=== PATIENT | male | born 1955 | race Caucasian/White ===

== ENCOUNTER 2017-02-22 05:33 | Day surgery (SDC) | payer OTHER ==
[2017-02-22] VITALS (9 sets, daily range): BP systolic 106–138; BP diastolic 55–67; PULSE 54–61; RESP 14–17; O2SAT 94–100
[~2017-02-22] VITALS: Ht 162.6 cm; Wt 91.9 kg
[~2017-02-22 05:33] MED LIST: AMLO5TAB2 PO; ASPI-973 PO; ATEN100T PO; CYCL10TA9 PO; FLUT9.9S NS; HYDR25TA4 PO; LANS30CA14 PO; LEVO25TA41 PO; Lactated Ringer's 1,000 ML IV ONE; METF500T4 PO; SIMV20TA4 PO; TAMS0.4C98 PO
[2017-02-22] MEDS ORDERED: Propofol 10,000 mCg/mL 20 mL Inj ONE (05:34)
[2017-02-22] MEDS ORDERED: Glycopyrrolate 0.2 MG/ML 1mL Inj ONE (05:34)
[2017-02-22] MEDS ORDERED: Dexamethasone 4 mg/mL Inj ONE (05:34)
[2017-02-22] MEDS ORDERED: Rocuronium 10 mg/mL 5 mL Inj ONE (05:34)
[2017-02-22] MEDS ORDERED: Neostigmine 1 mg/mL 10 mL Inj ONE (05:34)
[2017-02-22] MEDS ORDERED: Ondansetron 2 mg/mL 2 mL Inj ONE (05:34)
[2017-02-22] MEDS ORDERED: fentaNYL-PF 50 mCg/mL 2 mL Inj ONE (05:34)
[2017-02-22] MEDS ORDERED: HYDR-4003 PO (05:55)
[2017-02-22] MEDS ORDERED: MULT-666 PO (05:55)
[2017-02-22] MEDS ORDERED: Levofloxacin 500 mg/100 mL D5W IV ONE (06:00)
[2017-02-22] MEDS ORDERED: Lactated Ringer's 1,000 ML IV SCH (07:53)
[2017-02-22] MEDS ORDERED: Lactated Ringer's 500 ML IV PRN (07:53)
--- NOTE | 2017-02-22 07:53 | PCM.HPANE ---
Patient Data Surgeon Admitting Provider: Attending Provider:Apple Saleem MD Primary Care Physician:Hany Curtis DO Other Provider:Merari Garciaingham Anesthesia Reason for Visit Enlarge Prostate Ht/WT & BMI Height (Feet): 5 Height (Inches): 4 Weight (Kilograms): 91.9 Body Mass Index 34.00 Allergies Coded Allergies: atorvastatin (Verified Adverse Reaction, Severe, muscle aches, 02/18/17) Past Anesthesia History Anesthesia History: Denies:: Abnormal Airway, Anesthesia Reactions, Difficult Intubation, Fam Anesthesia Reaction, Fam Malignant Hypertherm, Malignant Hyperthermia Diabetes History Hx Diabetes?: Yes Type of Diabetes: Type II Current Bedside Blood Glucose: 106 MRSA MRSA: No Medications Blood Thinner: Aspirin Hypertension Medication: Yes (AMLODIPINE,HCTZ) Home Meds Incl Beta Celio: Yes Date Beta Celio Taken: Feb 22, 2017 Time Beta Celio Taken: 399 Previous Beta Celio Dose >24: Previous Dose <24 Hours Reported Medications Multivitamin (Once Daily)1 Each Tablet1 Each PO DAILY 02/22/17 Hydrocodone-Acetaminophen 5-325 mg 1 Each Tablet1 Tab PO PRN #60 02/22/17 Simvastatin 20 Mg Nkcczh66 Mg PO HS Ref 0 02/18/[address] (Prevacid)30 Mg Zkelslv11 Mg PO DAILY Ref 0 02/18/17 Metformin 500 Mg Nspgxz826 Mg PO DAILY Ref 0 02/18/17 Levothyroxine (Levoxyl)25 Mcg Hycufk34 Mcg PO DAILY Ref 0 02/18/17 Hydrochlorothiazide 25 Mg Fyfvvh01 Mg PO DAILY 30 Days Ref 0 02/18/17 Fluticasone Propionate (Flonase Allergy Relief)50 Mcg/Actuation [place].susp9.9 Ml NS DAILY 02/18/17 Cyclobenzaprine 10 Mg Iafycs61 Mg PO HS PRN Spasm Ref 0 02/18/17 Atenolol 100 Mg Bxwwmy870 Mg PO DAILY Ref 0 02/18/17 Aspirin 81 Mg Spccuz02 Mg PO DAILY Ref 0 02/18/17 Amlodipine 5 Mg Tablet5 Mg PO DAILY Ref 0 02/18/17 Tamsulosin (Flomax)0.4 Mg Capsule0.4 Mg PO DAILY Ref 0 02/18/17 Discontinued Reported Medications Lansoprazole-Expunged Drug, Do Not Renew! 30 Mg Capsule.dr30 Mg PO AM Ref 0 01/25/09 Simvastatin-Expunged Drug, Choose New Med! 40 Mg Lthrgs91 Mg PO AM Ref 0 01/25/09 Aspirin-Expunged Drug, Do Not Renew! (Aspirin EC-Expunged Drug, Do Not Renew!) 81 Mg Wkdodz20 Mg PO AM Ref 0 01/25/09 Atenolol-Expunged Drug, Do Not Renew! 100 Mg Tipzbp539 Mg PO AM Ref 0 01/25/09 History History of ENT Problems?: Yes HEENT History: Denies:: Abnormal Airway Cataracts Difficult Intubation Dysphagia Glaucoma Hearing Problem Sinus Problem TMJ Denture Type: Full- Upper Full- Lower Teeth Condition: Missing Teeth Other HEENT Pertinent History: S/P MULT. TOOTH EXTRACTIONS Hx of Heart Problems?: Yes Cardiovascular History: Positive for:: Chest Pain (11/2001 MPS WNL) Edema (PERIPHERAL) Hypertension (HYPERLIPIDEMIA) Denies:: Heart Murmur Other Cardiac History: HX OF POLYCYTHEMIA, HEMATOCHROMATOSIS-LAST TX W/ PHLEBOTOMY 2010 Hx of Respiratory Problem?: Yes Respiratory History: Positive for:: COPD (MILD ATYPICAL OBSTRUCTION ON PFT) Chest Surgery (S/P RU LOBECTOMY FOR CA PULM NOTE 07/2016, PFT 06/2015) Denies:: Use of C-PAP Machine Other Resp Pertinent History: longtime smoker (+40pkyrs) quit in 2014 Hx Neurologic Problems?: Yes Neurological History: Positive for:: 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 (SEBORRHEIC KERATOSIS) Hx Musculoskeletal Problems?: Yes Musculoskeletal History: Positive for:: Musculoskeletal Trauma (S/P ORIF ANKLE ,RT ROTATOR CUFF RPR) Denies:: Back Injury (C/OF CHRONIC LOWER BACK PAIN & CERVICA DDD) Hx of Psycho/Social Problems?: Yes Psycho Social History: Positive for:: Anxiety Hx Depression Hx Surgeries?: Yes (shoulder, ankle,RT UPPER LOBECTOMY,KIDNEY STONE,LUMBAR SPINE,TEETH) Hx Any Other Health Problems?: Yes Other History: Positive for:: Cancer (RT UPPER LOBE LUNG) Hospitalization Thyroid Disease Denies:: Endocrine Disease History Blood Transfusions: Denies:: Blood Transfusions Hx Diabetes: YesBedside Blood Glucose: 106 Hx Alcohol Use: Yes (OCCAS)Have You Smoked inLast 12 mo: NoApprox How Many Cigarettes/day: 2 PPD X 44YRS Stop/Bang S-Snoring: Do You Snore Loudly: No T-Tired: feel tired, fatigued: Yes O-Obsered: Observed not breath: No P-Blood Pressure: treated: Yes B- Body Mass Index > 35 kg/m2: No A- Age over 50: Yes N- Neck Large Circumference: No G- Gender Male: Yes SANTA Total Score: 4 SANTA Risk Assessment: High Risk, =/>3 Yes Risk Assessment Category Category 1A: Patient has history of documented sleep apnea, and HAS NOT received any narcotic, sedative or anesthesia administration during this stay. Category 1B: Patient has history of documented sleep apnea, and HAS received any narcotic , sedative or anesthesia administration during this stay Category 2: Patient has SUSPECTED Obstructive Sleep Apnea, and HAS received any narcotic , sedative or anesthesia administration during this stay. Category 3: Patient has SUSPECTED Obstructive Sleep Apnea and HAS NOT received narcotic, sedative or anesthesia administration during this stay. Category 4: Outpatient in Procedural Areas with known sleep apnea or who screen positive for High Risk via the STOP/BANG questionnaire. Exam Exam Vital Signs Vital Signs Date Time Temp Pulse Resp B/P Pulse Ox O2 Delivery O2 Flow Rate FiO2 02/22/17 06:04 56 17 127/60 95 Room Air General Appearance: Alert, Oriented X3, Cooperative, No Acute Distress HEENT/AIRWAY: MP 2, Neck Movement (limited with extension) Lungs: Clear to Auscultation, Normal Air Movement Heart: Exam Unremarkable, Regular Rate/Rhythm, No Murmurs/Rubs/Gallops Meds/Labs/Diagnostics Admission Meds Current Medications Lactated Ringer's (Lr) 1,000 ml @ 120 mls/hr Q8H20M ONCE IV Last administered on 02/22/17t 05:39; Start 02/22/17 at 05:00; Stop 02/22/17 at 13:19 Bedside Blood Glucose: 106 Plan Impression Patient chart reviewed, patient interviewed and anesthestic plan with risks, benefits, and alternatives discussed, and informed consent obtained. NPO per Anesth. Guidelines: Yes ASA Physical Status: ASA3 Severe Disease Anesthetic Plan: GA Bene/Risks/Altern/Consents: Yes HP Complete Prior to Induction: Yes Srinivasa Addison MD Feb 22, 2017 07:07
[2017-02-22] MEDS ORDERED: MetoCLOpramide 5 mg/mL 2 mL Inj IVPUSH PRN (07:55)
[2017-02-22] MEDS ORDERED: HYDROmorphone 1 mg/mL Inj IVPUSH PRN (07:55)
[2017-02-22] MEDS ORDERED: Ondansetron 2 mg/mL 2 mL Inj IVPUSH PRN (07:55)
[2017-02-22] MEDS ORDERED: fentaNYL-PF 50 mCg/mL 2 mL Inj IVPUSH PRN (07:55)
[2017-02-22] MEDS ORDERED: EPHEDrine Sulfate 50 mg/mL Inj IVPUSH PRN (07:55)
[2017-02-22] MEDS ORDERED: Labetalol 5 mg/mL 4 mL Inj IV PRN (07:55)
[2017-02-22] MEDS ORDERED: Atropine 0.4 mg/mL Inj IVPUSH PRN (07:55)
[2017-02-22] MEDS ORDERED: Phenylephrine 10,000 mCg/mL Inj IVPUSH PRN (07:55)
[2017-02-22] MEDS ORDERED: HYDROcodone-APAP 5-325 mg Tablet PO PRN (08:20)
--- NOTE | 2017-02-22 08:39 | PCM.ANEP1 ---
Post Anesthesia PACU Phase 1 Assessment Vital Signs Vital Signs Date Time Temp Pulse Resp B/P Pulse Ox O2 Delivery O2 Flow Rate FiO2 02/22/17 08:35 56 16 106/55 94 Room Air 02/22/17 08:30 54 15 119/63 100 Simple Mask 8 02/22/17 08:25 55 14 127/58 100 Simple Mask 8 02/22/17 08:20 36.2 56 17 138/65 100 Simple Mask 8 02/22/17 06:04 56 17 127/60 95 Room Air Anesthetic Administered: GA Level of Alertness: Awake, talking BECKER's with Equal Strength: Yes Pain: No Nausea or Vomiting: No CV Function & Hydration Stable: Yes Airway Device: Endotrachial Tube Oxygen Delivery: Simple Mask Lungs: Clear to Auscultation, Normal Air Movement PACU Phase 2 Assessment Complications: No Follow up Care: N/A Patient Instructions Provided: N/A Srinivasa Addison MD Feb 22, 2017 08:39
--- NOTE | 2017-02-22 08:58 | OP ---
[address] [address] OPERATIVE REPORT PATIENT: HARLEY MAURICIO : 1955 MR#: [id number] ADMIT: 02/22/2017 JOB ID: [id number] DATE OF SURGERY: 02/22/2017 PREOPERATIVE DIAGNOSIS(ES): Lower urinary tract symptoms. POSTOPERATIVE DIAGNOSIS(ES): Lower urinary tract symptoms. PROCEDURE PERFORMED: 1. Cystoscopy. 2. Transurethral resection of prostate. SURGEON: Apple Saleem MD EXTENSION SERVICE ADVISOR: None. FINDINGS: Hypertrophic bilateral lobes of prostate. ANESTHESIA: General. ESTIMATED BLOOD LOSS: Less than 5 mL. DRAINS: 18-Palauan coude Walsh catheter to the bladder. SPECIMENS: Prostate chips. COMPLICATIONS: None. CONDITION: Stable. INDICATIONS FOR PROCEDURE: The patient is a 61-year-old gentleman with lower urinary tract symptoms, for which he has attempted medical management, but wishes to proceed with intervention. He now presents for transurethral resection of prostate. DESCRIPTION OF PROCEDURE: After informed consent was obtained, the patient was taken to the operating room. A time-out was performed, identifying correct patient, surgical site, and procedure. General anesthesia was smoothly induced. He was placed in the lithotomy position and all pressure points were identified and appropriately padded. He was given intravenous antibiotics just prior to start of procedure. His genitals were then prepped and draped in usual sterile fashion. It was attempted to place a 26-Palauan resectoscope under direct vision into the urethra, but the meatus was just slightly inadequate. The meatus only was gently dilated in succession to 30-Palauan with Gregory sounds. This proceeded smoothly without any bleeding. The resectoscope was then placed within the urethra and advanced into the bladder. The bladder was drained. The bladder was systematically inspected. Both ureteral orifices were seen in orthotopic position. Resection commenced from the bladder neck to just proximal to the verumontanum, proceeding with the right lobe first. Then resection commenced to the left lobe. At the end of the procedure, the ureteral orifices were again identified and were left as undisturbed. All the chips had been removed via the resectoscope. There was excellent hemostasis. An open channel through the prostatic urethra was visualized at the termination of the procedure. An 18-Palauan coude catheter was placed into the patient's bladder and 15 cc of sterile water were used to instill the balloon. The catheter was set to dependent drainage with the catheter bag and adhered to the patient's upper thigh. The patient was then reversed from general anesthesia and taken to PACU in good and stable condition. MINAL
--- NOTE | 2017-02-23 15:29 | PATH ---
SURGICAL PATHOLOGY Attending Physician:Apple Saleem, CASE STATUS: Signed Out PATIENT NAME: HARLEY MAURICIO PID: [id number] : 1955 DATE COLLECTED:02/22/2017 15:20 SPECIMEN: Prostate, Radical Resection CLINICAL HISTORY: ENLARGED PROSTATE 1. RESECTED PROSTATE FINAL DIAGNOSIS: 1.TRANSURETHRAL RESECTED PROSTATE TISSUE (MEASURING 2.0 X 2.0 X 0.4 CM IN AGGREGATE): NODULAR HYPERPLASIA OF GLANDS AND STROMA. NEGATIVE FOR ATYPIA AND MALIGNANCY. ICD10 N40.1 GROSS DESCRIPTION: Received in formalin, labeled with the patient' s name and "resected prostate", is a collection of noel tissue fragments measuring 2.0 x 2.0 x 0.4 cm in aggregate. All fragments are totally submitted in cassette 1A. ([id number]) MICRO DESCRIPTION: See diagnosis. ICD-9 CODES: CPT CODES: 94299 Electronically Signed Out Dilan Wright MD [facility] [address], [place] [address] Technical component performed at [facility], [facility] [address], [place], [address]
== END 2017-02-22 23:59 | disposition home or self-care (01) ==
LOC: SAS 05:33
PROVIDERS: ATTEND Urology
DX: N40.1 Benign prostatic hyperplasia with lower urinary tract symptoms (principal); R39.15 Urgency of urination; R35.0 Frequency of micturition; R35.1 Nocturia; I10 Essential (primary) hypertension; E03.9 Hypothyroidism, unspecified; E78.2 Mixed hyperlipidemia; K21.9 Gastro-esophageal reflux disease without esophagitis; D75.1 Secondary polycythemia; M54.5 Low back pain; M50.30 Other cervical disc degeneration, unspecified cervical region; Z85.118 Personal history of other malignant neoplasm of bronchus and lung; Z87.891 Personal history of nicotine dependence; Z79.82 Long term (current) use of aspirin
CPT/HCPCS: 52601; J1100; J2405; J2710; J3010; J7120